=== PATIENT | male | born 1995 | race Caucasian/White ===

== ENCOUNTER 2016-11-20 11:12 | Emergency (ER) | payer OTHER ==
[2016-11-20 11:22] VITALS: RESP 16; O2SAT 98
--- NOTE | 2016-11-20 11:56 | EDPHY ---
H & P Stated Complaint: staff infection to left elbow. Has had 2 doses of anti bx. Sent by PCP. HPI/ROS: Chief complaint: Left arm infection History of present illness: This is a 21-year-old male who presents to the emergency department with his mother for evaluation of left arm infection. Patient has been suffering from this infection for the last 4 weeks. Initially he had rashes on his body that his primary care doctor thought it was ringworm and treated with antifungals. However they worsened approximately 4 weeks ago he went to a supervisor partial denture department. The supervisor partial denture department believe this was staff and started him on doxycycline due to a penicillin allergy. He initially was on a 12 day course. Symptoms dramatically improved but did not resolve. However upon stopping at the antibiotic symptoms returned. He was again started back on antibiotics and symptoms have improved but not resolved. In addition to the lesion on his left arm when he is off antibiotics he gets lesions on other parts of the body. He also reports a generalized feeling of malaise. Mother is concerned because she reports a history of a infection remotely when patient got a cut and required 10 weeks of penicillin. Review of systems: A 10 point review of systems was obtained and other than described above was negative - Personal History Current Tetanus Diphtheria and Acellular Pertussis (TDAP): Unsure - Medical/Surgical History Hx Asthma: No Hx Chronic Respiratory Disease: No Hx Diabetes: No Hx Cardiac Disease: No Hx Renal Disease: No Hx Cirrhosis: No Hx Alcoholism: No Hx HIV/AIDS: No Other PMH: Staph infection 8 years ago. - Social History Smoking Status: Never smoked - Physical Exam Exam: General Appearance: Alert, nontoxic. Eyes: Pupils equal and round no pallor or injection. ENT, Mouth: Mucous membranes moist. Respiratory: There are no retractions, lungs are clear to auscultation. Cardiovascular: Regular rate and rhythm. Gastrointestinal: Abdomen is soft and nontender, no masses, bowel sounds normal. Neurological: Alert and oriented x4. Strength and sensation intact and symmetrical. Skin: There is an area of erythema and warmth to the lateral aspect of the left elbow. No associated edema. No induration or fluctuance to suggest abscess. No red streaking. No other lesions noted. Musculoskeletal: Neck is supple nontender. Extremities are symmetrical, full range of motion. This includes good range of motion strength with both active and passive range of motion of the left elbow. Psychiatric: Patient is oriented X 3, there is no agitation. Constitutional: Initial Vital Signs Temperature (C) 36.6 C 11/20/16 11:18 Heart Rate 82 11/20/16 11:18 Respiratory Rate 16 11/20/16 11:18 Blood Pressure 121/70 H 11/20/16 11:18 O2 Sat (%) 98 11/20/16 11:18 O2 Delivery Mode Room Air Allergies/Adverse Reactions: amoxicillin [Amoxicillin] Allergy (Verified 09/06/10 14:39) Rash Home Medications: Medication Instructions Recorded Cephalexin [Keflex] 500 mg PO QID 7 Days 11/20/16 Doxycycline Calcium 11/20/16 Medical Decision Making ED Course/Re-evaluation: Patient seen under the supervision of my secondary supervising physician Dr. Norbert Huerta. Patient presents to the emergency department for evaluation of what is believed to be a persistent skin infection. Patient does have an area of erythema and warmth to his left elbow. This does appear to be a cellulitis. However I do not appreciate evidence of further complications such as abscess , bursitis, septic joint or sepsis. Patient is afebrile and vital signs are stable. He is nontoxic. I have consulted with Dr. Chon Perez of Infectious Disease. He recommends baseline blood studies. In addition patient can be started on Keflex as his amoxicillin allergy is reported as mild by patient and to continue doxycycline. Patient will follow up in Dr. Perez's office in 2 days. Strict return precautions were given. Patient and mother voiced understanding and agreement with plan. - Data Points Laboratory Results: Laboratory Results 11/20/16 12:10 11/20/16 12:10 11/20/16 11/20/16 12:10 12:10 WBC 3.99 10^3/uL 10^3/uL (3.80-9.50) RBC 5.14 10^6/uL 10^6/uL (4.40-6.38) Hgb 15.2 g/dL g/dL (13.7-17.5) Hct 43.6 % % (40.0-51.0) MCV 84.8 fL fL (81.5-99.8) MCH 29.6 pg pg (27.9-34.1) MCHC 34.9 g/dL g/dL (32.4-36.7) RDW 12.0 % % (11.5-15.2) Plt Count 231 10^3/uL 10^3/uL (150-400) MPV 9.8 fL fL (8.7-11.7) Neut % (Auto) 44.3 % % (39.3-74.2) Lymph % (Auto) 41.4 % % (15.0-45.0) [place] % (Auto) 10.5 % % (4.5-13.0) Eos % (Auto) 3.0 % % (0.6-7.6) Baso % (Auto) 0.5 % % (0.3-1.7) Nucleat RBC Rel Count 0.0 % % (0.0-0.2) Absolute Neuts (auto) 1.77 10^3/uL 10^3/uL (1.70-6.50) Absolute Lymphs (auto) 1.65 10^3/uL 10^3/uL (1.00-3.00) Absolute Monos (auto) 0.42 10^3/uL 10^3/uL (0.30-0.80) Absolute Eos (auto) 0.12 10^3/uL 10^3/uL (0.03-0.40) Absolute Basos (auto) 0.02 10^3/uL 10^3/uL (0.02-0.10) Absolute Nucleated RBC 0.00 10^3/uL 10^3/uL (0-0.01) Immature Gran % 0.3 % % (0.0-1.1) Immature Gran # 0.01 10^3/uL 10^3/uL (0.00-0.10) Sodium 139 mEq/L mEq/L (134-144) Potassium 4.4 mEq/L mEq/L (3.5-5.2) Chloride 102 mEq/L mEq/L (97-110) Carbon Dioxide 25 mEq/l mEq/l (22-31) Anion Gap 12 mEq/L mEq/L (8-16) BUN 13 mg/dL mg/dL (7-23) Creatinine 1.0 mg/dL mg/dL (0.7-1.3) Estimated GFR > 60 Glucose 84 mg/dL mg/dL (70-100) Calcium 10.3 mg/dL mg/dL (8.5-10.4) Medications Given: Discontinued Medications Ceftriaxone Sodium/Dextrose (Rocephin 1 Gm (Premix)) 50 mls @ 100 mls/hr IV EDNOW ONE PRN Reason: Protocol Stop: 11/20/16 12:29 Last Admin: 11/20/16 12:15 Dose: 50 mls Vancomycin/Sodium Chloride (Vancomycin 1 Gm (Premix)) 250 mls @ 250 mls/hr IV EDNOW ONE PRN Reason: Protocol Stop: 11/20/16 13:41 Last Admin: 11/20/16 12:51 Dose: Not Given Departure - Departure Disposition: Home, Routine, Self-Care Clinical Impression: Cellulitis Condition: Good Instructions: Cellulitis (ED) Additional Instructions: You have an appointment with Dr. Chon Perez, infectious disease, on the at 11 am If symptoms worsen or new symptoms develop return to the emergency department for recheck Referrals: Stas Avila MD [Primary Care Provider] - As per Instructions Chon Perez MD [Medical Doctor] - As per Instructions Stand Alone Forms: School Excuse Prescriptions: Cephalexin [Keflex] 500 mg PO QID 7 Days
[2016-11-20 12:23] LABS: % IMMATURE GRANULYOCYTES 0.3 % (0.0-1.1); ABSOLUTE IMMATURE GRANULOCYTES 0.01 10^3/uL (0.00-0.10); ADD DIFF? NO; ADD MORPH? NO; ADD SCAN? NO; ATYPICAL LYMPHOCYTE FLAG 10 (0-99); FRAGMENT RBC FLAG 0 (0-99); HEMATOCRIT 43.6 % (40.0-51.0); HEMOGLOBIN 15.2 g/dL (13.7-17.5); LEFT SHIFT FLG 0 (0-99); LIPEMIA HEMOLYSIS FLAG 90 (0-99); MEAN CELL HEMOGLOBIN 29.6 pg (27.9-34.1); MEAN CELL HEMOGLOBIN CONCENTR. 34.9 g/dL (32.4-36.7); MEAN CELL VOLUME 84.8 fL (81.5-99.8); MEAN PLATELET VOLUME 9.8 fL (8.7-11.7); PLATELET CLUMPS FLAG 0 (0-99); PLATELET COUNT 231 10^3/uL (150-400); RED BLOOD CELL COUNT 5.14 10^6/uL (4.40-6.38)
[2016-11-20 12:42] LABS: ANION GAP 12 mEq/L (8-16); CALCIUM 10.3 mg/dL (8.5-10.4); CARBON DIOXIDE 25 mEq/l (22-31); CHLORIDE 102 mEq/L (97-110); GLOMERULAR FILTRATION RATE > 60; GLUCOSE 84 mg/dL (70-100); POTASSIUM 4.4 mEq/L (3.5-5.2); SODIUM 139 mEq/L (134-144)
[2016-11-20] MEDS ORDERED: VANCOMYCIN HCL/NORMAL SALINE 250 ML IV ONE (12:42)
[2016-11-20 13:03] VITALS: BP 114/78; PULSE 78; TEMP 98.4
== END 2016-11-20 13:02 | disposition home or self-care (01) ==
DX: L03.114 Cellulitis of left upper limb (principal)
CPT/HCPCS: 96365; J0696